=== PATIENT | female | born 1970 | race Caucasian/White ===

== ENCOUNTER 2016-11-03 06:36 | Day surgery (SDC) | payer OTHER ==
[~2016-11-03] VITALS: Ht 160 cm; Wt 115.9 kg
[~2016-11-03 06:36] MED LIST: ADIPEX-P37.5 MG PO; ARMOUR THYROID120 MG PO; ARMOUR THYROID180 MG PO; ERGOCALCIF50000 UNIT PO; PROAIR RESPICL90 MCG IH
[2016-11-03 07:17] VITALS: BP 139/73
[2016-11-03] MEDS ORDERED: TYLENOL WITH C1 EACH PO (09:11)
[2016-11-03 09:42] VITALS: BP 142/62
[2016-11-03 10:37] VITALS: BP 135/68
[2016-11-03 11:16] VITALS: BP 138/80
[2016-11-03 12:18] LABS: INTERNAL CONTROL VALID? YES
== END 2016-11-03 11:28 | disposition home or self-care (01) ==
LOC: SDC 06:36
PROVIDERS: Obstetrics & Gynecology
PROC: 0UDB8ZZ Extraction of Endometrium, Via Natural or Artificial Opening Endoscopic (ICD-10-PCS; principal; 2016-11-03)
PROC: 0U5B8ZZ Destruction of Endometrium, Via Natural or Artificial Opening Endoscopic (ICD-10-PCS; principal; 2016-11-03)
DX: N93.8 Other specified abnormal uterine and vaginal bleeding (principal); E11.9 Type 2 diabetes mellitus without complications; E03.9 Hypothyroidism, unspecified; E66.01 Morbid (severe) obesity due to excess calories; Z68.42 Body mass index [BMI] 45.0-49.9, adult; J45.909 Unspecified asthma, uncomplicated; Z79.51 Long term (current) use of inhaled steroids; G47.33 Obstructive sleep apnea (adult) (pediatric)
CPT/HCPCS: 84703; 88305; J0131; J0330; J1100; J1885; J2405; J2550; J3010